=== PATIENT | female | born 1965 | race Caucasian/White ===

== ENCOUNTER → 2023-11-17 09:43 | Outpatient (REF) | payer BC, SELFPAY | LOC: RAD 09:43 | PROVIDERS: ATTENDING PHYSICIAN Internal Medicine | DX: R10.32 Left lower quadrant pain (principal) | CPT/HCPCS: 74177; Q9967 ==

== ENCOUNTER 2024-12-19 16:31 | Emergency (ER) | payer BC, SELFPAY ==
[2024-12-19 16:32] VITALS: BP 102/65
[2024-12-19] MEDS: OMNIPAQUE 50 ML PO (16:37)
[2024-12-19 16:49] LABS: % Basophils 1.9 % (0-2); % Eosinophils 1.9 % (0-6); % Immature Granulocytes 0.2 % (0-0.5); % Lymphocytes 34.5 % (20.5-51.1); % Monocytes 9.5 % (1.7-9.3); Absolute Basophils 0.1 10^3/uL (0-0.2); Absolute Eosinophils 0.1 10^3/uL (0-0.7); Absolute Lymphocytes 1.5 10^3/uL (1.2-3.4); Absolute Monocytes 0.4 10^3/uL (0.1-0.6); Absolute Neutrophils 2.3 10^3/uL (1.4-6.5); Hemoglobin 13.2 g/dL (12.0-16.0); Mean Corp Hgb Conc. 34.7 g/dL (33.0-37.0); Mean Corpuscular Hgb 33.1 pg (27.0-31.0); Mean Corpuscular Volume 95.2 fL (81.0-99.0); Mean Platelet Volume 11.8 fL (7.4-10.4); Nucleated Red Blood Cells % 0 %; Platelet Count 159 10^3/uL (130-400); Red Blood Cell Count 3.99 10^6/uL (4.20-5.40); Red Cell Dist. Width 12.7 % (11.5-14.5); White Blood Cell Count 4.3 10^3/uL (4.8-10.8)
[2024-12-19 17:05] LABS: ALT (SGPT) 25 U/L (0-35); AST (SGOT) 25 U/L (14-36); Albumin 4.3 g/dl (3.5-5.0); Alkaline Phosphatase 43 U/L (38-126); Blood Urea Nitrogen 23 mg/dl (7-17); Calcium 9.8 mg/dl (8.4-10.2); Carbon Dioxide 30 mmol/L (22-30); Chloride 100 mmol/L (98-107); Glucose 98 mg/dl (70-99); Lipase 128 U/L (23-300); Potassium 4.2 mmol/L (3.5-5.1); Sodium 138 mmol/L (135-145); Total Bilirubin 0.4 mg/dl (0.2-1.3); Total Protein 7.7 g/dl (6.3-8.2); eGFR > 60.00
--- NOTE | 2024-12-19 17:53 | ED.GENMED ---
History of Present Illness
General
Chief Complaint: Abdominal Symptoms
Time Seen by Provider: 12/19/24 17:44
History of Present Illness
History of Present Illness:
Patient is a 58-year-old woman with history of diverticulitis presenting to the emergency department with abdominal pain. Patient states that the pain started earlier this morning. It is in her left lower quadrant. It does not radiate. No fevers
chills. No urinary symptoms. She has been having slight constipation but did have a bowel movement earlier today. No recent travel. No recent antibiotics. She states that last time she had diverticulitis she was treated outpatient with levo
Flagyl.
Past History
Past History
ED Past Medical History: None; Negative Asthma, HTN, Hypercholesterolemia or NIDDM
ED Past Surgical History: None
Social History
Tobacco: Non-smoker
Alcohol: Daily (Wine 1-2 glasses)
Personal:
Living: with family
Employment: Employed
Phy Exam
Physical Exam
Physical Exam:
GENERAL: in no acute distress
HEENT: normocephalic, extraocular movements intact, moist oral mucosa
NECK: normal inspection
RESPIRATORY: no respiratory distress, clear to auscultation bilaterally
CARDIOVASCULAR: regular rate and rhythm
ABDOMEN/: soft, non-distended, left lower quadrant tenderness to palpation, no rebound or guarding
EXTREMITIES: non-tender, no edema/swelling
NEUROLOGIC: awake and alert, moves all extremities
SKIN: warm
Course
Orders/Labs/Results
Orders:
Orders
12/19/24 16:35
Iohexol [Omnipaque] 50 ml .ROUTE .[facility]
12/19/24 16:36
CT Abd/pel W Iv And Oral Contr Urgent
Reason For Exam: LLQ pain, diverticulitis history
12/19/24 16:37
Iohexol [Omnipaque] See Protocol PO NOW STA
12/19/24 16:43
Complete Blood Count/With Diff Urgent
Comprehensive Metabolic Panel Urgent
Lipase Urgent
12/19/24 19:54
Urinalysis Reflex To Culture Urgent
Date Specimen was Collected: 12/19/24
Time Specimen was Collected: 19:53
12/19/24 20:59
Magnesium Citrate [Citroma] 300 ml PO ONCE ONE
Abnormal Lab Results
12/19/24
16:43
WBC 4.3 L 10^3/uL
(4.8-10.8)
RBC 3.99 L 10^6/uL
(4.20-5.40)
MCH 33.1 H pg
(27.0-31.0)
MPV 11.8 H fL
(7.4-10.4)
Monocytes % 9.5 H %
(1.7-9.3)
BUN 23 H mg/dl
(7-17)
12/19/24 16:43
12/19/24 16:43
Vital Signs
Initial and Last Documented VS:
Initial Vital Signs
Temp Pulse Resp BP Pulse Ox
98.7 F 66 17 102/65 99
12/19/24 16:32 12/19/24 16:32 12/19/24 16:32 12/19/24 16:32 12/19/24 16:32
Last Documented Vital Signs
Temp Pulse Resp BP Pulse Ox
98.0 F 54 17 101/70 99
12/19/24 19:56 12/19/24 19:56 12/19/24 16:32 12/19/24 19:56 12/19/24 19:56
MDM/Problems Addressed
Differential Diagnosis Includes:
Patient is a 58-year-old woman presenting to the emergency department with left lower quadrant abdominal pain for the past 7 hours. On arrival vitals are notable for blood pressure 102/65. She does have left lower quadrant abdominal tenderness to
palpation. Concern for diverticulitis versus kidney stone versus UTI. Will check blood work and CT scan. Will obtain urine
*Critical Care Note
Total Time (30-74mins, 75-104mins- exclusive of procedures): Not Applicable
Update Note
Update Note:
Urinalysis negative. Blood work reassuring. CT scan per my interpretation significant amount of stool. Per the official read no bowel obstruction no signs of diverticulitis. I did update patient on these findings. Did offer patient magnesium.
Patient will take at home. Also discussed the option of using MiraLAX at home. Strict return precautions given. Will discharge at this time
ED Attending Note
-
Portions of this chart may have been created with voice recognition software.� Occasional wrong word or��sound alike� substitutions may have occurred due to the inherent limitations of voice recognition software.
Discharge Plan
Departure
Patient Disposition: Home (Routine Discharge)
Date of Disposition: 12/19/24
Time of Disposition: 21:00
Patient with high blood pressure during this ER visit?: No
Discharge Problem:
Constipation
Instructions: Constipation, Adult (DC)
Prescriptions:
No Action
prednisone 10 MG tablet
10 mg PO .TAPER Qty: 30 0RF
Rx Instructions:
Take 40mg daily x3days, 30mg daily x3days,
20mg daily x3days, 10mg daily x3days.
famotidine 20 MG tablet
20 mg PO DAILY Qty: 15 0RF
Referrals:
Sushila Humphrey MD [Family Provider] -
Activity Restrictions/Additional Instructions:
You were seen in the Emergency Department today for Abdominal pain. while you were here we performed blood work, which was reassuring. Your CT scan does show constipation. Please use the magnesium/MiraLAX as discussed.
We would like for you to follow up with your primary care physician for further evaluation. If you experience fever, worsening of your symptoms, or develop any other new or concerning symptoms, please return to the Emergency Department immediately.
Please see the attached sheet for additional information.
Interventions
Interventions:
*Risk Screen - Suicide Last Done: 12/19/24 16:35
*General Assessment Last Done: 12/19/24 16:35
*Neglect/Abuse Screening Last Done: 12/19/24 16:35
*ED COVID-19 Vaccine History Last Done: 12/19/24 16:35
VM-Xfzygu-Gtwigslnel Assessment Last Done: 12/19/24 19:59
Discharge Date and Time
Print Language: GREENLANDIC
[2024-12-19 19:56] VITALS: BP 101/70
[2024-12-19 20:01] LABS: Urine Albumin Negative (Neg - Trace); Urine Bilirubin Negative (Negative); Urine Character Clear (Clear); Urine Color Yellow; Urine Glucose Negative (Negative); Urine Ketone Negative (Negative); Urine Leukocyte Negative (Negative); Urine Nitrite Negative (Negative); Urine Occult Blood Negative (Negative); Urine Specific Gravity 1.005 (<1.030); Urine Urobilinogen Negative (Neg - 1+)
[2024-12-19] MEDS: CITROMA 300 ML PO (21:15)
[2024-12-19 21:18] VITALS: BP 105/60
== END 2024-12-19 21:33 | disposition home or self-care (01) ==
LOC: EMR 16:31
PROVIDERS: Physician Assistant Medical; EMERGENCY PHYSICIAN Student in an Organized Health Care Education/Training Program; FAMILY PHYSICIAN Internal Medicine
DX: K59.00 Constipation, unspecified (principal)
CPT/HCPCS: 99285; 74177; 80053; 81003; 83690; 85025; Q9967